=== PATIENT | female | born 1960 | race Caucasian/White ===

== ENCOUNTER 2017-05-18 05:54 | Day surgery (SDC) | payer BC ==
[2017-05-18] VITALS (8 sets, daily range): BP systolic 105–115; BP diastolic 61–72
[~2017-05-18] VITALS: Ht 165.1 cm; Wt 56.7 kg
[~2017-05-18 05:54] MED LIST: NKM
[2017-05-18] MEDS ORDERED: Bupivacaine 0.5% Inj 30 ml vial INJ ONE (06:56)
[2017-05-18] MEDS ORDERED: Lidocaine 2% 20mg/ml/EPI 0.01mg/ml 20ml ONE (06:56)
[2017-05-18] MEDS ORDERED: Solu-MEDROL 40mg Inj ONE (06:56)
[2017-05-18] MEDS ORDERED: Lidocaine 2% MPF 5ml Vial INJ ONE (07:13)
--- NOTE | 2017-05-18 07:18 | Pre-Procedure Note/Attestation ---
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 Attestation I attest that I discussed the nature of the procedure; its benefits; risks and complications; and alternatives (and the risks and benefits of such alternatives ), prior to the procedure, with the patient (or the patient's legal retail service representative). I attest that, if there was a reasonable possibility of needing a blood transfusion, the patient (or the patient's legal retail service representative) was given the [facility] standardized written summary, pursuant to the Jeff Mcgraw Blood Safety Act ([place] Health and Safety Code # 1645, as amended). I attest that I re-evaluated the patient just prior to the surgery and that there has been no change in the patient's H&P, except as documented below: WILYL SAMANIEGO May 18, 2017 07:17
[2017-05-18] MEDS ORDERED: Kenalog-10 5ml Inj ONE (07:33)
[2017-05-18] MEDS ORDERED: NS Irrig 1000ml ONE (08:00)
[2017-05-18] MEDS ORDERED: Metoclopramide 10mg/2ml Inj ONE (08:00)
[2017-05-18] MEDS ORDERED: Lidocaine 1% MPF 10mg/ml 5ml ONE (08:00)
[2017-05-18] MEDS ORDERED: fentaNYL 100 mcg/2 mL IV ONE (08:00)
[2017-05-18] MEDS ORDERED: LR 1000ml ONE (08:00)
[2017-05-18] MEDS ORDERED: Midazolam 2mg/2ml Inj ONE (08:00)
[2017-05-18] MEDS ORDERED: Ketorolac 30mg Inj ONE (08:00)
[2017-05-18] MEDS ORDERED: Sterile Water Irrig 1000ml IRRIG ONE (08:00)
[2017-05-18] MEDS ORDERED: Propofol 200mg/20ml IV ONE (08:00)
[2017-05-18] MEDS ORDERED: LR 1000ml 1,000 ML IVLG SCH (08:22)
--- NOTE | 2017-05-18 08:28 | Anethesia Preoperative Eval ---
Anesthesia Pre-op PMH/ROS General Date of Evaluation: May 18, 2017 Time of Evaluation: 07:40 Anesthesiologist: Armen ASA Score: ASA 1 Mallampati Score Class I : Soft palate, uvula, fauces, pillars visible Class II: Soft palate, uvula, fauces visible Class III: Soft palate, base of uvula visible Class IV: Only hard plate visible Mallampati Classification: Class II Surgeon: Ava Diagnosis: Neuroma Surgical Procedure: Excision Foot Neuroma Anesthesia History: none Family History: no anesthesia problems Allergies: Coded Allergies: No Known Allergies (Unverified , 05/17/17) Anesthesia Pre-op Phys. Exam Physician Exam Last Vital Signs Date Time Temp Pulse Resp B/P (MAP) Pulse Ox O2 Delivery O2 Flow Rate FiO2 05/18/17 06:14 97.2 55 20 115/68 100 Room Air Constitutional: NAD Neurologic: CN 2-12 intact Cardiovascular: RRR Respiratory: CTA Gastrointestinal: S/NT/ND Airway Exam Mallampati Score: Class II MO: full ROM: full Teeth: intact Anesthesia Pre-op A/P Risk Assessment & Plan Plan: MAC LOCAL Pre-Antibiotics Drug: Ancef Given Within 1 Hr of Incision: Yes Time Given: 08:00 Adán Ayers M.D. May 18, 2017 08:28
[2017-05-18] MEDS ORDERED: DiphenhydrAMINE 50mg/ml Inj IVP PRN (08:30)
[2017-05-18] MEDS ORDERED: Ketorolac 30mg Inj IV PRN (08:30)
[2017-05-18] MEDS ORDERED: Midazolam 2mg/2ml Inj IVP PRN (08:30)
[2017-05-18] MEDS ORDERED: Hydromorphone 0.5mg/0.5ml inj IVP PRN (08:30)
[2017-05-18] MEDS ORDERED: Metoclopramide 10mg/2ml Inj IVP PRN (08:30)
[2017-05-18] MEDS ORDERED: fentaNYL 100 mcg/2 mL IV PRN (08:30)
--- NOTE | 2017-05-18 08:30 | Immediate Post-Op Evaluation ---
Immediate Post-Op Evalulation Immediate Post-Op Evalulation Procedure: Excision Foot Neuroma Date of Evaluation: May 18, 2017 Time of Evaluation: 11:00 IV Fluids: 800 Blood Products: 0 Estimated Blood Loss: 10 Urinary Output: 0 Blood Pressure Systolic: 121 Blood Pressure Diastolic: 63 Pulse Rate: 62 Respiratory Rate: 14 O2 Sat by Pulse Oximetry: 99 Temperature (Fahrenheit): 97 Pain Score (1-10): 0 Nausea: No Vomiting: No Patient Status: awake, reacts, patent Hydration Status: adequate Drug: ancef Given Within 1 Hr of Incision: Yes Time Given: 08:00 Adán Ayers M.D. May 18, 2017 08:30
--- NOTE | 2017-05-18 08:31 | 48 Hour Post Anesthesia Eval ---
Post Anesthesia Evaluation Procedure: Excision Foot Neuroma Date of Evaluation: May 20, 2017 Time of Evaluation: 20:00 Blood Pressure Systolic: 123 0: 45 Pulse Rate: 61 Respiratory Rate: 15 Temperature (Fahrenheit): 98 O2 Sat by Pulse Oximetry: 99 Airway: patent Nausea: No Vomiting: No Pain Intensity: 0 Hydration Status: adequate Mental Status/LOC: patient returned to baseline Follow-up care needed: patient intructions given Adán Ayers M.D. May 18, 2017 08:31
[2017-05-18] MEDS ORDERED: Acetaminophen (Non formulary) 100 ML IV ONE (09:00)
--- NOTE | 2017-05-18 09:04 | Operative Note - PDOC ---
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 Procedure: Neuroma removal Post-op Diagnosis: Neuroma left foot. Post-op Diagnosis: same as pre-op Surgeon: Willy Escalante Anesthesiologist: Charlene Anesthesia: MAC Specimen: yes Complications: none Estimated Blood Loss: none Tourniquet time: 52 - min Implant(s) used?: No Indications for Procedure 3 months failed conservative care Description of Procedure Neuroma removal left foot. WILLY ESCALANTE May 18, 2017 09:04
--- NOTE | 2017-05-19 10:15 | Operative Note - Dictated ---
DATE OF OPERATION: 05/18/2017 SURGEON: Devonte Escalante D.P.M. ANESTHESIOLOGIST: Dr. Chang PREOPERATIVE DIAGNOSIS: Painful left foot neuroma with failed conservative care. POSTOPERATIVE DIAGNOSIS: Painful left foot neuroma with failed conservative care. PROCEDURE PERFORMED: Left foot neuroma removal. ANESTHESIA: MAC with local anesthetic to the left foot. DESCRIPTION OF PROCEDURE: Under mild sedation, the patient was brought into the operating room, placed on the operating table in the supine position. Approximately 5 mL of 2% lidocaine plain infiltrated to the left foot dorsal in between the 3rd and 4th metatarsal head area. At this time, the patient was able to feel a Arlette's click was palpable and the patient feels the pain. The palpable Arlette's click was felt before the surgery. Next, the foot was draped and prepped in the usual aseptic technique and a gram of Ancef was given to the patient prior to the surgery by the anesthesiologist. Next, a well-padded ankle tourniquet was inflated to 230 mmHg for hemostasis. The tourniquet was raised. Attention was directed over the dorsal aspect of the left foot where a longitudinal incision approximately 3 cm in length placed over the old incision site and extending proximally in total of 2 cm long. Care was taken to protect and retract all neurovascular structures, and a dorsal venous plexus and dorsal veins were also retracted. Incision was deepened down and dissection between the 3rd and 4th metatarsal head and pressure given from the bottom and is able to assure the placement of the neuroma. The dorsal interosseous ligament was transected and dissection was taken down deeper to expose the plantar interosseous ligament. After the release of the interosseous ligament, the neuroma was . At this time, the neuroma was dissected distally the 3rd and 4th toe and the branches were cut as far distal as possible. Dissection was then proceeded more proximally and the proximal end of the neuroma of the nerve was identified into the muscle belly . At this time, as far proximal as possible, the proximal end of the nerve was transected. The nerve was removed and a picture was taken that showed the proximal stump as well as the distal in the 3rd and the 4th toe area. At this time, the area was examined and removal of the neuroma. The area was flushed then with a copious amount of sterile normal saline and the wound was closed. A Vicryl stitch was used to recreate the interosseous ligament by bringing the 2 heads closer together closely. Then, the underlying skin was reapproximated with 4-0 Vicryl and the overlying skin was reapproximated with 4-0 nylon. The area was given a 5 mL postop injection and that was the mixture of 10 mL 0.5% Marcaine mixed with 1 mL of Kenalog-10. Next, the foot was dressed with Betadine soaked Adaptic, 4x4s, Claudia wrap, and a compressive Coban dressing. The tourniquet was then released and all digits retained vascular status as given by the immediate hyperemic response to all digits. The patient tolerated the procedure well and left the OR with vital signs stable. The patient was instructed to keep partial weightbearing only to the left leg and was sent to Physical Therapy for crutch training. The patient was also given a prescription for pain as well as given a dose of anti-inflammatories to be continued daily. The patient will be followed up in my office in approximately 1 week. Devonte Escalante DPM DR: MARCOS JOB#: [id number] CC:
== END 2017-05-18 11:15 | disposition home or self-care (01) ==
LOC: SUR 05:54
DX: G57.62 Lesion of plantar nerve, left lower limb (principal); M85.80 Other specified disorders of bone density and structure, unspecified site; G62.9 Polyneuropathy, unspecified; Z90.710 Acquired absence of both cervix and uterus; Z82.62 Family history of osteoporosis; Z80.41 Family history of malignant neoplasm of ovary
CPT/HCPCS: 28080; 97161; J0690; J1885; J2250; J2405; J2704; J2765; J3010; J3301; J3490; J7120; 94003; 94150